=== PATIENT | male | born 1965 | race Caucasian/White ===

== ENCOUNTER → 2016-10-14 | Outpatient (CLI) | payer BC, OTHER ==
--- NOTE | 2016-10-15 06:32 | PAP/PSG TECHNICIAN REPORT ---
[facility] Director Of Strategic Sourcing Polysomnogram Report Study name: None Report date: 10/15/2016 Study date: 10/14/2016 Referring Physician: Masha JORDAN M.D. Name: JAZMIN VIZCARRA Interpreting Physician: María Jordan M.D. Date of : 1965 Director Of Strategic Sourcing: Yvette Murrell RPSGT. Sex: Male Age: 51 Study Type: PSG Weight: 177 lbs 16 in Height: 51 years, Height 5' 8" Neck Circum: BMI: 26.91 Medications: MELOXICAM 7.5 MG, LISINOPRIL 10 MG, ALEVE 220 MG Patient History 51 yr-old male here for a baseline/split study. He has a history of snoring, witnessed apneas, and waking up with a gasping/short of breath sensation. His Refugio scale is 8. The test was started on room air. ETCO2 testing was not utilized during this study. Room 1 Parameters Monitored NPSG: E1-M2, E2-M1, Fp1-M2, Fp2-M1, F3-M2, F4-M2, F4-M1, C3-M2, C4-M2, C4-M1, O1-M2, O2-M2, O2-M1, T3-M2, T4-M1, P3-M2, P4-M1, CHIN1, CHIN2, HR, EKG, Legs, PFLOW, SNOR, FLOW, CFLOW, Tidal Volume, THOR, ABDO, SpO2, PLTH, CPRESS, ETCO2 Wave, ETCO2, pH Sleep Architecture Sleep Stages Time at Lights Off 9:48:25 PM STAGES Time (min.) TST (%) Time at Lights On 5:29:55 AM Wake 89.0 -- Total Recording Time (TRT) 461.50 min. N1 44.0 12 Total Sleep Period (TSP) 441.0 min. N2 203.5 55 Total Sleep Time (TST) 372.5min. N3 25.0 7 Awake Time 89.0 min. REM 100.0 27 Wake after Sleep Onset 68.5 min. Sleep Efficiency (SE) 81 % Sleep Onset Latency (LEIGH ANN) 20.5 min. Number of Stage 1 Shifts None Awakenings 26 Stage Changes 114 Number of REM periods 10 REM 100.0 27 REM Latency 58.5 min. NREM 272.5 73 Body Position Analysis Supine Right Left Side Prone Vertical Total Sleep Time (min.) 219.6 220.5 0.0 220.49 0.0 0.0 Total Sleep Time (%) 41% 59% 0% 59 0% N/A% Total Sleep Time REM (min.) 50.5 49.5 0.0 None 0.0 0.0 Total Sleep Time NREM (min.) 101.5 171.0 0.0 None 0.0 0.0 Intermittent Wake (min.) 67.5 21.5 0.0 None 0.0 0.0 Total Sleep Period (%) 46% None None None None None Arousals Myoclonus (PLM) * Events Count Index Events Count Index Spontaneous 38 6 Events Awake (PLMW) 65 43.8 Respiratory 13 2.1 Events Asleep w/ Arousal (PLMA) 40 6.4 PLM 40 6 Events Asleep w/o Arousal (PLMS) 158 25.4 Snoring 9 1 Total Asleep 198 31.9 Total 100 16 Total 263 34 Respiratory Analysis * CA OA MA CH H RERA Total Count 3 0 0 0 54 4 57 Index 0.5 0.0 0.0 0 8.7 1 9.8 Mean Duration 13.5 0.0 0.0 0.00 21.5 17.4 20.8 Longest Duration 17.6 0.0 0.0 0.00 0.0 18.8 37.5 Respiratory Event Summary Total Supine ~Supine Right Left Prone REM NREM Apneas Count 3 2 1 1 N/A N/A 2 1 Index 0.5 1 0 0.3 N/A N/A 1 0 Hypopneas (4% Desat) Count 54 52 2 2 N/A N/A 38 16 Index 8.7 20.5 1 0.5 N/A N/A 22.8 3.5 Apneas & All Hypopneas Count 57 54 3 3 N/A N/A 40 17 Index 9.2 21 1 1 N/A N/A 24.0 3.7 Respiratory Events (Rfid Engineer+All Hyp+RERA) Count 57 56 5 5 N/A N/A 40 17 Index 9.8 22 1 1.4 N/A N/A 24.0 4.6 Respiratory Related Arousal Count 13 56 2 2 N/A N/A 5 8 Index 2.1 4 1 1 N/A N/A 3 2 Snoring Analysis Supine Right Left Prone REM NREM Total Snore duration 11.2 min Snores count 107 367 N/A N/A 74 400 474 Snore mean duration 1.4 Sec Snores index 42 100 N/A N/A 44.4 88.1 76.3 TST with snoring (%) 3.0% Desaturation Event Summary: Minimum %SpO2 Event Count Mean/Min/Max Duration(sec.) Desaturation Index % Time In Bed > 90 73 28.5 / 6.5 / 60.0 9.7 97.5 86 - 90 4 9.0 / 6.5 / 11.3 21.0 2.5 81 - 85 0 N/A 0.0 0.0 76 - 80 0 N/A 0.0 0.0 71 - 75 0 N/A 0.0 0.0 66 - 70 0 N/A 0.0 0.0 61 - 65 0 N/A 0.0 0.0 56 - 60 0 N/A 0.0 0.0 51 - 55 0 N/A 0.0 0.0 < 50 0 N/A 0.0 0.0 Total REM NREM Awake <50% 0.0 min. 0.0 min. 0.0 min. 0.0 min. 51 - 60% 0.0 min. 0.0 min. 0.0 min. 0.0 min. 61 - 70% 0.0 min. 0.0 min. 0.0 min. 0.0 min. 71 - 80% 0.0 min. 0.0 min. 0.0 min. 0.0 min. 81 - 90% 11.6 min. 8.3 min. 2.8 min. 0.6 min. 91 - 100% 449.3 min. 91.7 min. 269.4 min. 88.2 min. Average 93 93 93 93 Minimum SpO2 84 84 88 86 Desaturation Event Index 9.5 29.4 4.4 4.7 # Desat. Events below 89% 17 16 1 0 Time(%) with Saturation below 89% 0.6 0.5 0.0 0.1 Time(min.) with Saturation below 89% 2.8 2.5 0.1 0.3 Time (mins) REM (mins) NREM (mins) % of TST SpO2 Below 90% 49 35 N14 1.5 SpO2 Below 88% 7 0 0 0 Heart Rate Analysis Min (bpm) Max (bpm) Average (bpm) Awake 51 127 63 NREM 49 109 60 REM 50 90 63 Overall 49 109 60 Supplemental O2 Values Minimum O2 level: None Value Start Time End Time Director Of Strategic Sourcing Comments Mr. Vizcarra slept in the right, left, and supine positions. No cardiac arrhythmias were noted. PLMs and arousals from leg movements were noted. No bruxism noted. Snoring was noted and scored as a 2-3 on a scale of 1 through 5. (0=no snoring, 5=snoring loud enough to be heard through a closed door or down the [address] way) He did not meet specific Split-Night criteria during the diagnostic portion of this study. He did not wake up to use the restroom during the night. Mr. Vizcarra stated that he slept the same as usual. The final report will be interpreted and signed by a sleep physician. The completed physician report will then be placed in the patient medical record. Therapy (cm H2O) 0 TIB (min.) 461.5 TST (min.) 372.5 Sleep Onset (min.) 20.5 REM Onset From Sleep (min.) 58.5 Sleep Efficiency % 81 Wakefulness (%) 19 Wakefulness (min.) 89.0 NREM 1 (%) 12 NREM 1 (min.) 44.0 NREM 2 (%) 55 NREM 2 (min.) 203.5 NREM 3 (%) 7 NREM 3 (min.) 25.0 REM (%) 27 REM (min.) 100.0 # Arousals 100 Arousal Index 16 # Snore 474 Snore Index 76.3 AHI 9.2 AHI Supine 21 AHI Non-Supine 1 NREM AHI 3.7 REM AHI 24.0 RDI 9.8 # Obstructive Apnea 0 # Central Apnea 3 # Mixed Apnea 0 # Hypopneas 54 RERAs 4 Total Respiratory Events 61 Time Below SpO2 89% (min.) 2.6 Mean NREM SpO2 (%) 93 Mean REM SpO2 (%) 93 Mean Sleep SpO2 (%) 93 Min NREM SpO2 (%) 88 Min REM SpO2 (%) 84 Position Supine (min.) 219.6 Position Non-supine (min.) 220.5 LM Index Sleep 31.9 LM Index NREM 28.0 LM Index REM 42.6 Mean Heart Rate (bpm) 60 Min Heart Rate (bpm) 49
--- NOTE | 2016-10-25 22:04 | POLYSOMNOGRAPH REPORT ---
REFERRING PERSON: María Jordan MD [employer] HAND: Yvette Murrell. Mr. Arthur is a 51-year-old male, sent for a baseline sleep study. He complains of snoring, witnessed apneas, waking up with gasping and short of breath during sleep. His Jackson sleepiness scale score on the evening of this study is 8. BMI is 26.91. Following the technical and digital specifications of the [employer] [employer] (AASM) a standard diagnostic polysomnogram was performed monitoring EEG, EOG, EMG (chin and leg deviations), oxygen saturation, body position, digital video, respiratory effort and airflow. The sleep Stage and event scoring was based on the AASM Manual for the Scoring of Sleep and Associated Events 2007 edition. Apneas are defined as a drop in the peak thermal sensor excursion by >90% of baseline for at least 10 seconds. Hypopneas were scored using the 4% oxygen desaturation rule (4A-[employer]) and a decrease in the nasal pressure excursions by >30% of baseline for at least 10 seconds. Respiratory effort-related arousal (RERA's) is defined as a sequence of breaths lasting at least 10 seconds characterized by increasing respiratory effort or flattening of the nasal pressure waveform leading to an arousal from sleep when the sequence of breaths does not meet criteria for an apnea or hypopnea. Apnea Hypopnea index (AHI) is defined as the number of apneas and hypopneas occurring in an hour of sleep. Respiratory disturbance index (RDI) is defined as the number of apneas, hypopneas, and RERA's occurring in an hour of sleep. Mr. Arthur's total sleep period time was 441 minutes. Total sleep time was 372.5 minutes. Sleep efficiency was 81%. Latency to sleep onset was 20.5 minutes. Wake after sleep onset was 68.5 minutes. Total non-REM sleep time was 272.5 minutes. He spent 12% of that time in N1 sleep, 55% in N2 sleep and 7% in N3 sleep. REM latency was 58.5 minutes. Total REM sleep time was 100 minutes or 27% of total sleep time. There were 100 cortical arousals from sleep; 38 of these arousals were spontaneous, 13 were due to respiratory events, 40 due to periodic limb movements of sleep and 9 were due to snoring. There were 198 periodic limb movements noted on this test. Limb movement index was 31.9. Limb movement with arousal index was 25.4. There were 3 central apneas, no obstructive apneas and no mixed apneas on this test. There were 54 hypopneas and 4 RERAs. Apnea-hypopnea index was elevated at 9.2 with an RDI of 9.8. Supine AHI was 21 and REM AHI was 24. A 74 snoring events were recorded. Total sleep time with snoring was 3. Mean saturation during sleep was 93% with desaturations to 84%, but these were transient. Saturations were less than 89% from only 2.8 minutes of recording time. There was no cardiac ectopy noted on this study. Heart rates ranged from a low of 49 beats per minute to a high of 109 beats per minute during sleep. IMPRESSION AND PLAN: A 51-year-old male, with evidence of mild sleep apnea without nocturnal hypoxemia on this sleep study. 1. This patient would likely benefit from positive airway pressure therapy. He should return to the sleep lab for a full night titration and then based on those results be started on equipment at home. A download from his machine can be reviewed in 1 month; both to check compliance as well as AHI and further pressure adjustments can occur at that time. 2. Should this patient be unwilling or unable to tolerate CPAP therapy, he should be referred to ear, nose and throat or oral surgery/dental medicine (if appropriate) to discuss alternative treatments for sleep disordered breathing. 3. As an alternative to CPAP titration study, this patient could be started on auto titrating CPAP at home and then after 1 month of a pressure range of 5-15, the patient could be set to optimal pressure.
== END | disposition home or self-care (01) ==
LOC: C.NEUR 20:00
PROVIDERS: ATTEND Family Medicine
DX: G47.10 Hypersomnia, unspecified (principal); R06.83 Snoring